=== PATIENT | female | born 1975 | race Caucasian/White ===

== ENCOUNTER 2025-02-09 23:46 | Emergency (ER) | payer BC, SELFPAY ==
[2025-02-09 23:59] VITALS: BP 154/97
[2025-02-10] VITALS (7 sets, daily range): BP systolic 130–158; BP diastolic 81–94; PULSE 77–88; BMI 34.3
[2025-02-10 00:18] LABS: Hematocrit 31.7 % (37.0-47.0); Hemoglobin 9.4 g/dL (12.0-16.0); Mean Corp Hgb Conc. 29.7 g/dL (33.0-37.0); Mean Corpuscular Volume 76.4 fL (81.0-99.0); Nucleated Red Blood Cells % 0 %; Platelet Count 342 10^3/uL (130-400); Red Cell Dist. Width 15.3 % (11.5-14.5)
[2025-02-10 00:27] LABS: HCG, Serum Qualitative Screen Negative
[2025-02-10 00:36] LABS: ALT (SGPT) 11 U/L (0-35); AST (SGOT) 16 U/L (14-36); Albumin 4.2 g/dl (3.5-5.0); Alkaline Phosphatase 101 U/L (38-126); Blood Urea Nitrogen 11 mg/dl (7-17); Calcium 9.3 mg/dl (8.4-10.2); Carbon Dioxide 29 mmol/L (22-30); Chloride 103 mmol/L (98-107); Glucose 99 mg/dl (70-99); Potassium 4.2 mmol/L (3.5-5.1); Sodium 137 mmol/L (135-145); Total Protein 7.4 g/dl (6.3-8.2); eGFR > 60.00
[2025-02-10] MEDS: NSS 1000 IV (04:07)
--- NOTE | 2025-02-10 04:23 | ED.GENMED ---
History of Present Illness
General
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
Source: patient
Exam Limitations: none
Time Seen by Provider: 02/10/25 03:26
Nursing documentation reviewed up to this point in time: agreed with
History of Present Illness
History of Present Illness:
HISTORY OF PRESENT ILLNESS
The patient is a 54-year-old female with a history of ongoing uterine bleeding that has persisted for several months, generally mild/scant bleeding on a daily basis since October. Now presenting with significant increase in bleeding characterized by
large blood clots and dizziness. The current episode started tonight. The blood is described as vivid red. Associated symptoms include episodes of dizziness and lightheadedness, brief in nature. She has also noted some lower abdominal cramping
tonight. The patient also reports a history of uterine fibroid and a hemorrhagic ovarian cyst, last evaluated via ultrasound in October. She is currently experiencing significant concern due to the increased bleeding severity.
She follows with a kiln remover not on staff at this hospital.
She had been treated with a 2 to 3-week course of norethindrone in September due to heavy bleeding. After that course of norethindrone, she has had mild daily spotting since October. Heavy bleeding began tonight passing large clots. No history of
similar episodes of heavy bleeding.
She denies chest pain, no shortness of breath, no palpitations.
Her daily medications include Lexapro 10 mg, trazodone. She takes no anticoagulants.
Patient shows me a copy of the pelvic ultrasound performed in October showing a 1.2 cm right ovarian cyst appearing hemorrhagic cyst in nature. Uterine cavity is empty. There is a posterior myoma measuring 3.1 x 2.6 x 2.6 mm.
Past History
Past History
ED Past Medical History: Psychiatric and Other (Dysfunctional uterine bleeding, uterine fibroid.)
ED Past Surgical History: Gynecological (Breast lumpectomy, benign)
Social History
Tobacco: Non-smoker
Alcohol: None
Personal:
Living: with family
Employment: Employed
Family History
Family History: Other (Noncontributory)
Phy Exam
Physical Exam
Physical Exam:
GENERAL: 49-year-old woman appears her stated age, bright and alert, pleasant, easily communicative and in no acute distress.
EYE: anicteric
NECK: Supple, nontender, no meningismus, no significant adenopathy.
ENT: oral mucosa is moist. No rhinorrhea.
CARDIAC: Regular rate and rhythm. no murmur.
LUNGS: Clear breath sounds bilaterally, no acute respiratory distress, no wheezes/rales/rhonchi
ABDOMEN: Soft, nondistended, minimal tenderness suprapubic region with deep palpation only, no r/g, no cvat. normoactive BS.
NEUROLOGICAL: Alert and oriented x3, no focal neuro deficits.
SKIN: Warm and dry, minimally pale in color, skin intact. No rash.
MUSCULOSKELETAL: No C/C/E. peripheral pulses are full and equal b/l. No palpable tenderness.
PSYCH: Normal and appropriate interaction.
Course
Orders/Labs/Results
Orders:
Orders
02/10/25 00:00
Test Result ONCE
02/10/25 00:07
Complete Blood Count/With Diff Urgent
Comprehensive Metabolic Panel Urgent
HCG, Serum Qualitative Screen Urgent
02/10/25 03:45
Orthostatic VS- Treatment ONCE
0.9% Sodium Chloride 1000 ml [Nss] 1,000 ml IV BOLUS
US Pelvis Only (non-obstetric) Urgent
Comment:
Reason For Exam: heavy vaginal bleeding
Abnormal Lab Results
02/10/25
00:07
RBC 4.15 L 10^6/uL
(4.20-5.40)
Hgb 9.4 L g/dL
(12.0-16.0)
Hct 31.7 L %
(37.0-47.0)
MCV 76.4 L fL
(81.0-99.0)
MCH 22.7 L pg
(27.0-31.0)
MCHC 29.7 L g/dL
(33.0-37.0)
RDW 15.3 H %
(11.5-14.5)
02/10/25 00:07
02/10/25 00:07
Vital Signs
Initial and Last Documented VS:
Initial Vital Signs
Temp Pulse Resp Pulse Ox
98.1 F 95 20 99
02/09/25 23:54 02/09/25 23:54 02/09/25 23:54 02/09/25 23:54
Last Documented Vital Signs
Temp Pulse Resp BP Pulse Ox
98.3 F 72 20 155/83 96
02/10/25 06:23 02/10/25 01:50 02/10/25 06:23 02/10/25 06:20 02/10/25 06:21
MDM/Problems Addressed
Differential Diagnosis Includes:
DIFFERENTIAL DIAGNOSIS
The Differential Diagnosis includes, in no particular order and is not limited to:
1. Uterine fibroid
2. Endometrial hyperplasia
3. Endometrial polyp
4. Coagulopathy
5. Adenomyosis
6. Endometrial carcinoma
7. Hormonal imbalances
8. Uterine sarcoma
9. Hemorrhagic ovarian cyst
10. Uterine infection
MDM/Problems Addressed:
PROBLEM LIST
Acute Problems:
1. Heavy uterine bleeding with large blood clots
2. Dizziness and lightheadedness
Chronic Problems:
1. Uterine fibroid
PLAN
1. Obtain a pelvic ultrasound to evaluate uterine lining and assess for potential causes of bleeding.
2. Initiate an intravenous line for fluids and obtain a full blood count to assess anemia status.
3. Consider repeat course of Norethisterone Acetate to manage current bleeding episode.
4. Discuss potential future interventions with the kiln remover, such as uterine ablation, for definitive treatment of heavy bleeding.
5. Check orthostatic vital signs. Assess for potential symptomatic blood loss.
Chronic conditions affecting care:
Known uterine fibroid.
History of dysfunctional uterine bleeding
History of hemorrhagic right ovarian cyst.
*Radiology
Radiology exam reviewed: radiology read reviewed
*Pulse Oximetry
SaO2: 97
Oxygen Mode of Delivery: Room air
Patient hypoxic: no
*Critical Care Note
Total Time (30-74mins, 75-104mins- exclusive of procedures): Not Applicable
Update Note
Update Note:
06:15
Ultrasound shows thickened endometrial stripe at 2.4 cm. Uterine fibroid. No ovarian torsion.
Upon recheck, bleeding has significantly curtailed. Only scant blood on emmanuel-pad and speculum exam reveals moderate dark blood within the vaginal vault but no active bleeding. No clots.
Will touch base with DIRECTOR TELEVISION but plan is to resume norethindrone, discharge to home with prompt follow-up with established kiln remover.
Case discussed with DIRECTOR TELEVISION.
Agrees with initiation of norethindrone acetate. General doses 5 to 10 mg, 1-4 times daily for 5 to 10 days.
May require an endometrial biopsy but can be scheduled as an outpatient.
Will initiate 10 mg twice daily for the next 10 days.
Patient states she has had an endometrial biopsy in the past but 'it has been a while' Encouraged to discuss further evaluation with her primary DIRECTOR TELEVISION.
ED Attending Note
-
Portions of this chart may have been created with voice recognition software.� Occasional wrong word or��sound alike� substitutions may have occurred due to the inherent limitations of voice recognition software.
Discharge Plan
Departure
Patient Disposition: Home (Routine Discharge)
Date of Disposition: 02/10/25
Time of Disposition: 07:01
Patient with high blood pressure during this ER visit?: No
Condition: Good
Discharge Problem:
Bleeding, uterine, dysfunctional
Instructions: Heavy periods - ED (DC)
Prescriptions:
New
norethindrone acetate 5 mg tablet
10 mg PO BID Qty: 40 1RF
Referrals:
Andrés Ordoñez MD [Family Provider, Internal Medicine]
Activity Restrictions/Additional Instructions:
Call your kiln remover today to schedule a prompt follow-up for further evaluation.
Stay well-hydrated on a daily basis.
Start the norethindrone prescription provided today.
Interventions
Interventions:
*Risk Screen - Suicide Last Done: 02/09/25 23:54
*General Assessment Last Done: 02/10/25 01:52
*Neglect/Abuse Screening Last Done: 02/10/25 04:10
*ED COVID-19 Vaccine History Last Done: 02/10/25 01:52
*ED Influenza Vaccine History Last Done: 02/10/25 01:52
[facility] Fall Risk Assessment Tool Last Done: 02/10/25 01:56
ED-Female Genitourinary Assessment Last Done: 02/10/25 01:53
Discharge Date and Time
Print Language: DANISH
== END 2025-02-10 07:04 | disposition home or self-care (01) ==
LOC: EMR 23:46
PROVIDERS: EMERGENCY PHYSICIAN Emergency Medicine; FAMILY PHYSICIAN Internal Medicine
DX: N93.8 Other specified abnormal uterine and vaginal bleeding (principal); D25.2 Subserosal leiomyoma of uterus; N83.201 Unspecified ovarian cyst, right side; N83.202 Unspecified ovarian cyst, left side
CPT/HCPCS: 99284; 96360; 76856; 80053; 84703; 85025